=== PATIENT | male | born 1955 | race Caucasian/White ===

== ENCOUNTER 2020-01-18 13:14 | Day surgery (SDC) | payer MEDICARE, OTHER ==
[~2020-01-18] VITALS: Ht 182.9 cm; Wt 85.3 kg
[~2020-01-18 13:14] MED LIST: MELO7.5
[2020-01-18] MEDS ORDERED: METF500C PO (14:01)
[2020-01-18] MEDS ORDERED: LOVA40 PO (14:01)
[2020-01-18] MEDS ORDERED: GLIP5 PO (14:01)
[2020-01-18] MEDS ORDERED: ASPI81CH PO (14:01)
[2020-01-18] MEDS ORDERED: LOSA50 PO (14:02)
== END 2020-01-18 16:17 | disposition home or self-care (01) ==
LOC: ORSCSDS 13:14
PROVIDERS: Orthopaedic Surgery
PROC: 0SBC4ZZ Excision of Right Knee Joint, Percutaneous Endoscopic Approach (ICD-10-PCS; principal; 2020-01-18 14:30)
DX: S83.241A Other tear of medial meniscus, current injury, right knee, initial encounter (principal); S83.281A Other tear of lateral meniscus, current injury, right knee, initial encounter; I10 Essential (primary) hypertension; E78.5 Hyperlipidemia, unspecified; Z79.899 Other long term (current) drug therapy; Z79.84 Long term (current) use of oral hypoglycemic drugs
CPT/HCPCS: 82947; A9270-GY; J0690; J1100; J2250; J2405; J2704; J3010; J7120

== ENCOUNTER 2023-06-01 07:12 | Day surgery (SDC) | payer MEDICARE, OTHER ==
[2023-06-01] VITALS (15 sets, daily range): BP systolic 101–142; BP diastolic 61–83
[~2023-06-01] VITALS: Ht 178 cm; Wt 94.2 kg
[~2023-06-01 07:12] MED LIST changes: +ASPI81CH PO; +GLIP5 PO; +LOSA50 PO; +LOVA40 PO; +METF500C PO; +SENNA LAXATIVE8.6 MG PO
--- NOTE | 2023-06-01 07:59 | NUR ---
Ambulatory in Day Surgery. Patient states colon prep results clear/yellow. History, Chart, Medications and Allergies reviewed before start of procedure. Pre-Op teaching done. Pt verbalizes understanding. Patient States Post-Procedure ride home has been arranged.
--- NOTE | 2023-06-01 08:12 | NUR ---
06/01/23 0812 Trish Grijalva HISTORY, CHART, MEDICATIONS AND ALLERGIES REVIEWED BEFORE START OF PROCEDURE. PATIENT CONFIRMS NPO STATUS AND AGREES WITH SCHEDULED PROCEDURE. 3-LEAD EKG REVIEWED WITH PHYSICIAN PRIOR TO START OF PROCEDURE. MONITOR INTACT WITH CONTINUOUS PULSE OXIMETRY,CAPNOGRAPHY, 3-LEAD EKG, INTERMITTENT BP. SUPPLEMENTAL O2 TO BE TITRATED THROUGHOUT PROCEDURE TO MAINTAIN O2 SATURATION ABOVE 90%. PATIENT DETERMINED TO BE ASA APPROPRIATE FOR PROPOFOL SEDATION PRIOR TO START OF PROCEDURE BY .
--- NOTE | 2023-06-01 08:56 | NUR ---
Patient up to Ambulate independently. Gait steady. Discharge instructions reviewed with patient. Patient verbalizes understanding. Copy given to patient to take home. Discharged via wheelchair to private car for ride home.
== END 2023-06-01 08:53 | disposition home or self-care (01) ==
LOC: ORSCMMR 07:12 → ORD 08:00 → ORSCMMR 08:00
PROVIDERS: Internal Medicine Gastroenterology
PROC: 0DJD8ZZ Inspection of Lower Intestinal Tract, Via Natural or Artificial Opening Endoscopic (ICD-10-PCS; principal; 2023-06-01 08:00)
DX: Z12.11 Encounter for screening for malignant neoplasm of colon (principal); E11.9 Type 2 diabetes mellitus without complications; I10 Essential (primary) hypertension; E78.00 Pure hypercholesterolemia, unspecified; Z85.46 Personal history of malignant neoplasm of prostate; Z79.84 Long term (current) use of oral hypoglycemic drugs; Z79.82 Long term (current) use of aspirin; Z79.899 Other long term (current) drug therapy
CPT/HCPCS: 82947; J2704; J7120